=== PATIENT | female | born 1955 | race Caucasian/White ===

== ENCOUNTER 2024-05-14 12:59 | Outpatient (RCR) | payer MEDICARE | END 2024-05-22 | LOC: PT 12:59 | PROVIDERS: ATTEND Specialist | DX: M76.62 Achilles tendinitis, left leg (principal); R26.2 Difficulty in walking, not elsewhere classified; M62.81 Muscle weakness (generalized); M25.672 Stiffness of left ankle, not elsewhere classified ==